=== PATIENT | male | born 1955 | race Caucasian/White ===

== ENCOUNTER 2019-11-16 12:07 | Inpatient (IN) ==
[2019-11-16] MEDS ORDERED: *HR* Warfarin 5 MG TABLET PO SCH (16:00)
[2019-11-16] MEDS: *HR* Metformin 500 MG TABLET PO SCH (20:27)
[2019-11-16] MEDS: Aspirin Enteric Coated 81 MG Tablet PO SCH (20:27)
[2019-11-16] MEDS ORDERED: *HR* Enoxaparin 80 MG/0.8 ML SYRINGE SQ SCH (21:00)
[2019-11-16] MEDS: Budesonide/Formoterol 160/4.5 1 PUFF INH IH SCH (22:51)
[2019-11-17 06:31] LABS: Basophils % 0.2 %; Eosinophils # 0.1 K/mcL (0.0-0.6); Eosinophils % 0.9 %; Hematocrit 39.6 % (37.5-50.1); Hemoglobin 13.1 g/dL (12.9-16.9); Immature Granulocytes % 0.4 % (0-4); Lymphocytes # 2.5 K/mcL (0.6-4.6); Mean Corpuscular HGB Conc 33.1 g/dL (31.6-35.5); Mean Corpuscular Hemoglobin 30.5 pg (28.0-33.3); Mean Corpuscular Volume 92.1 fL (83.0-100.0); Mean Platelet Volume 11.5 fL (9.4-12.4); Monocytes # 0.8 K/mcL (0.0-1.3); Monocytes % 7.5 %; Neutrophils # 7.4 K/mcL (1.6-8.9); Platelet Count 280 K/mcL (140-400); Red Cell Distribution Width 14.3 % (11.5-14.5); White Blood Count 10.8 K/mcL (4.3-11.1)
[2019-11-17 06:39] LABS: INR 1.2; Prothrombin Time 13.7 Seconds (9.4-12.1)
[2019-11-17 06:50] LABS: BUN/Creatinine Ratio 19 (6-26); Blood Urea Nitrogen 25 mg/dL (8-23); Calcium 8.8 mg/dL (8.6-10.3); Carbon Dioxide 28 mEq/L (23-29); Chloride 98 mEq/L (98-107); Glucose 164 mg/dL (70-105); Osmolality,Calculated 288 (280-300); Sodium 135 mEq/L (136-145); eGFR For African Americans > 60 (> 60); eGFR For Non-African Americans 55 (> 60)
[2019-11-17] MEDS: *HR* Metformin 500 MG TABLET PO SCH (08:58)
[2019-11-17] MEDS: *HR* GlipiZIDE XL (24 HR) 2.5 MG TABLET PO SCH (08:58)
[2019-11-17] MEDS: Metoprolol XL (24 HR) Succ 25 MG TAB.ER.24H PO SCH (08:59)
[2019-11-17] MEDS: *HR* Enoxaparin 80 MG/0.8 ML SYRINGE SQ SCH ×2 (08:59→17:07)
[2019-11-17] MEDS ORDERED: predniSONE 20 MG TABLET PO SCH (09:00)
[2019-11-17] MEDS ORDERED: Furosemide 40 MG TABLET PO SCH (09:00)
[2019-11-17] MEDS: Budesonide/Formoterol 160/4.5 1 PUFF INH IH SCH ×2 (10:08→22:52)
[2019-11-17] MEDS ORDERED: Dextrose Gel 15 GM/37.5 ML TUBE PO PRN ×2 (15:07)
[2019-11-17] MEDS ORDERED: D5% in Water 1,000 ML IVC PRN (15:07)
[2019-11-17] MEDS ORDERED: *HR* Dextrose 50 % in Water (Vial) 50 ML VIAL IVP PRN (15:07)
[2019-11-17] MEDS ORDERED: *HR* Warfarin 5 MG TABLET PO SCH (16:00)
[2019-11-17] MEDS: Aspirin Enteric Coated 81 MG Tablet PO SCH (17:08)
[2019-11-17] MEDS: Furosemide 20 MG TABLET PO SCH (17:09)
[2019-11-17] MEDS: Insulin LISPRO 300 UNITS/3 ML VIAL SQ SCH ×2 (17:21→20:54)
[2019-11-17] MEDS ORDERED: *HR* Warfarin 3 MG TABLET PO ONE (18:00)
[2019-11-17] MEDS ORDERED: *HR* Enoxaparin 80 MG/0.8 ML SYRINGE SQ SCH (18:00)
[2019-11-17] MEDS ORDERED: Warfarin perPT PO PRN (18:00)
[2019-11-18] MEDS: *HR* Enoxaparin 80 MG/0.8 ML SYRINGE SQ SCH ×2 (06:15→17:31)
[2019-11-18] MEDS: Insulin LISPRO 300 UNITS/3 ML VIAL SQ SCH ×4 (07:40→19:54)
[2019-11-18 08:10] LABS: INR 1.5; Prothrombin Time 17.1 Seconds (9.4-12.1)
[2019-11-18] MEDS: Budesonide/Formoterol 160/4.5 1 PUFF INH IH SCH ×2 (08:31→21:44)
[2019-11-18] MEDS: predniSONE 20 MG TABLET PO SCH (09:50)
[2019-11-18] MEDS: Metoprolol XL (24 HR) Succ 25 MG TAB.ER.24H PO SCH (09:50)
[2019-11-18] MEDS: Furosemide 40 MG TABLET PO SCH (09:50)
[2019-11-18] MEDS: *HR* GlipiZIDE XL (24 HR) 2.5 MG TABLET PO SCH (09:50)
[2019-11-18 09:52] LABS: Estimated Average Glucose 206 mg/dl
[2019-11-18] MEDS: Furosemide 20 MG TABLET PO SCH (17:31)
[2019-11-18] MEDS: Aspirin Enteric Coated 81 MG Tablet PO SCH (17:31)
[2019-11-18] MEDS ORDERED: *HR* Warfarin 5 MG TABLET PO ONE (18:00)
[2019-11-19 05:43] LABS: INR 1.7; Prothrombin Time 19.1 Seconds (9.4-12.1)
[2019-11-19] MEDS: *HR* Enoxaparin 80 MG/0.8 ML SYRINGE SQ SCH ×2 (06:02→16:51)
[2019-11-19] MEDS: Budesonide/Formoterol 160/4.5 1 PUFF INH IH SCH ×2 (08:35→22:34)
[2019-11-19] MEDS: Metoprolol XL (24 HR) Succ 25 MG TAB.ER.24H PO SCH (08:49)
[2019-11-19] MEDS: *HR* GlipiZIDE XL (24 HR) 2.5 MG TABLET PO SCH (08:50)
[2019-11-19] MEDS: Furosemide 40 MG TABLET PO SCH (08:54)
[2019-11-19] MEDS: predniSONE 20 MG TABLET PO SCH (08:54)
[2019-11-19] MEDS: Insulin LISPRO 300 UNITS/3 ML VIAL SQ SCH ×4 (08:55→22:08)
[2019-11-19] MEDS: Aspirin Enteric Coated 81 MG Tablet PO SCH (16:52)
[2019-11-19] MEDS: Furosemide 20 MG TABLET PO SCH (16:52)
[2019-11-19] MEDS ORDERED: *HR* Warfarin 5 MG TABLET PO ONE (18:00)
[2019-11-20] MEDS: *HR* Enoxaparin 80 MG/0.8 ML SYRINGE SQ SCH (06:33)
[2019-11-20 06:41] LABS: Prothrombin Time 22.3 Seconds (9.4-12.1)
[2019-11-20] MEDS: predniSONE 20 MG TABLET PO SCH (09:04)
[2019-11-20] MEDS: Metoprolol XL (24 HR) Succ 25 MG TAB.ER.24H PO SCH (09:04)
[2019-11-20] MEDS: Furosemide 40 MG TABLET PO SCH (09:05)
[2019-11-20] MEDS: *HR* GlipiZIDE XL (24 HR) 2.5 MG TABLET PO SCH (09:05)
[2019-11-20] MEDS: Insulin LISPRO 300 UNITS/3 ML VIAL SQ SCH ×2 (09:08→11:59)
[2019-11-20] MEDS: Budesonide/Formoterol 160/4.5 1 PUFF INH IH SCH (10:13)
[2019-11-20 10:27] VITALS: BP 124/83
[2019-11-20] MEDS ORDERED: *HR* Warfarin 5 MG TABLET PO ONE (18:00)
== END 2019-11-20 15:15 | disposition home health service (06) | DRG 291 ==
LOC: INPPIK 18:57
PROVIDERS: ADMIT Family Medicine; ATTEND Family Medicine